=== PATIENT | female | born 1990 | race Caucasian/White ===

== ENCOUNTER → 2021-05-05 02:17 | Outpatient (CLI) | payer BC, SELFPAY ==
[2021-05-05 19:37] LABS: SARS-CoV-2 RNA PCR Negative
== END ==
PROVIDERS: PCP Family Medicine; Visit Provider Physician Assistant
DX: Z20.822 Contact with and (suspected) exposure to COVID-19 (principal)
CPT/HCPCS: C9803; U0003; U0005

== ENCOUNTER 2023-07-31 10:28 | Outpatient (CLI) | payer BC, SELFPAY ==
--- NOTE | ~2023-07-31 | MR_ITS ---
MR breast BI wo/w con 08/01/2023 10:40 CDT INDICATION: Left breast mass TECHNIQUE: MRI of the breasts perform using standard protocol pre-and post IV contrast with the follo wing sequences: Axial T2 STIR, axial T1, axial vibrant T1 with fat suppression precontrast and multip hasic postcontrast. 15 cc MultiHance administered intravenously. COMPARISON: Mammogram dated 04/28/2022 FINDINGS: Dense: The breasts are extremely dense. There are no abnormalities on the precontrast sequ ences. There is mild background parenchymal enhancement. No enhancing lesions following contrast adm inistration. No areas of enhancement meeting threshold criteria on CAD analysis. No evidence of sig nal abnormalities in the axillary or internal mammary node distributions. LEFT BREAST: No signal abnormalities on precontrast sequences. There is mild background parenchymal enhancement. No enhancing lesions following contrast administration. No areas of enhancement meeti ng threshold criteria on CAD analysis. No evidence of signal abnormalities in the axillary or inter nal mammary node distributions.] IMPRESSION: 1: Right breast: Negative. No evidence of malignancy. 2: Left breast: Negative. No evidence of malignancy. Follow-up diagnostic bilateral mammogram and ultrasound recommended for palpable breast abnormality. BI-RADS CATEGORY 0 - INCOMPLETE STUDY, NEED ADDITIONAL IMAGING EVALUATION. Reviewed, dictated and finalized at location B. IMPRESSION: 1: Right breast: Negative. No evidence of malignancy. 2: Left breast: Negative. No evidence of malignancy. Follow-up diagnostic bilateral mammogram and ultrasound recommended for palpabl e breast abnormality. BI-RADS CATEGORY 0 - INCOMPLETE STUDY, NEED ADDITIONAL IMAGING EVALUATION.
== END 2023-07-31 10:29 | disposition home or self-care (01) ==
PROVIDERS: PCP Family Medicine; Visit Provider Surgery
DX: Z12.31 Encounter for screening mammogram for malignant neoplasm of breast (principal); N64.89 Other specified disorders of breast; R92.8 Other abnormal and inconclusive findings on diagnostic imaging of breast
CPT/HCPCS: 77049; A9577; C8908

== ENCOUNTER 2023-09-28 11:09 | Outpatient (CLI) | payer BC, SELFPAY ==
--- NOTE | ~2023-09-28 | MMUS_ITS ---
EXAMINATION: MM diagnostic scott BI w rena, US breast BI complete HISTORY: Family history of breast cancer. TECHNIQUE: Additional 3-D tomosynthesis images of the breasts were performed and synthetic 2-D images were generated. CAD analysis was submitted and interpreted. High resolution bilateral complete breas t ultrasound was performed. COMPARISON: 04/28/2022 BREAST PARENCHYMAL COMPOSITION: Dense: The breasts are extremely dense, which lowers the sensitivity of mammography. FINDINGS: MAMMOGRAPHIC FINDINGS: The breasts are stable. No new masses, calcifications or architectural distortion in either breast to suggest malignancy. ULTRASOUND: Complete bilateral US of all 4 quadrants of the breasts and retroareolar region was reviewed. Normal heterogeneous echotexture without focal solid or cystic mass. IMPRESSION: 1. No evidence for malignancy in either breast. 2. Routine yearly screening mammogram and regular clinical breast examination are recommended. BI-RADS Category 1: Negative Reviewed, dictated and finalized at location B. IMPRESSION: 1. No evidence for malignancy in either breast. 2. Routine yearly screening mammogram and regular clinical breast examination a re recommended. BI-RADS Category 1: Negative
== END 2023-09-28 11:10 | disposition home or self-care (01) ==
LOC: ANHIMG 11:11
PROVIDERS: PCP Family Medicine; Visit Provider Surgery
DX: N64.89 Other specified disorders of breast (principal); Z12.39 Encounter for other screening for malignant neoplasm of breast
CPT/HCPCS: 76641; 77062; 77066; G0279

== ENCOUNTER 2024-12-17 14:25 | Outpatient (CLI) | payer BC, SELFPAY ==
--- NOTE | ~2024-12-17 | US_ITS ---
EXAMINATION: US thyroid DATE: 12/17/2024 14:42 INDICATION: Hypothyroidism TECHNIQUE: Multiple ultrasound images of the thyroid were obtained. COMPARISON: None. FINDINGS: The right thyroid lobe measures 6.0 x 3.2 x 2.3 cm. The left thyroid lobe measures 6.1 x 2.6 x 2.2 cm. Diffuse pseudo nodular pattern of decreased echogenicity throughout both the left and right thyroid lobes. There are 3 solid hyperechoic nodules with smooth margins and without echogenic foci (TI-RADS 3, mildly suspicious , FNA if >=2.5 cm, annual followup is >=1.5 cm), the largest at the inferior right thyroid measuring 2.2 cm with additional 9 mm nodule at the mid right thyroid and 1.3 cm nodule in the inferior left thyroid lobe. IMPRESSION: 1. There are 3 solid hyperechoic TI RADS 3 nodules, the largest on the right measuring 2.2 cm for which annual ultrasound follow-up would be recommended. 2. Diffuse hypoechoic pseudo nodular appearance to the left and right thyroid lobes suspicious for Ananda's/lymphocytic thyroiditis. Reviewed, dictated and finalized at location A. IMPRESSION: 1. There are 3 solid hyperechoic TI RADS 3 nodules, the largest on the right me asuring 2.2 cm for which annual ultrasound follow-up would be recommended. 2. Diffuse hypoechoic pseudo nodular appearance to the left and right thyroid l obes suspicious for Ananda's/lymphocytic thyroiditis.
== END 2024-12-17 14:26 | disposition home or self-care (01) ==
LOC: MICIMG 14:26
PROVIDERS: PCP Nurse Practitioner Family; Visit Provider Internal Medicine
DX: E03.9 Hypothyroidism, unspecified (principal); R63.5 Abnormal weight gain; L68.0 Hirsutism; N92.6 Irregular menstruation, unspecified; E04.2 Nontoxic multinodular goiter
CPT/HCPCS: 76536